=== PATIENT | female | born 1955 | race African-American/Black ===

== ENCOUNTER 2018-02-02 19:33 | Inpatient (IN) | payer OTHER ==
[~2018-02-02] VITALS: Ht 172.7 cm; Wt 79.8 kg
[~2018-02-02 19:33] MED LIST: CARI350T PO; OXYC10TE14 PO; SIMV10TA1 PO; ZOLP10TA1 PO; [UNRECOGNIZED DRUG - CODE] PO
[2018-02-02 19:43] VITALS: BP 130/44
--- NOTE | 2018-02-02 19:49 | NUR ---
PT TAKEN TO BED 2
--- NOTE | 2018-02-02 19:55 | NUR ---
came with c/o sorethroat, bodyaches, diarrhea, for a week.
--- NOTE | 2018-02-02 20:47 | NUR ---
ER MD DR MONAHAN AT BEDSIDE FOR EVAL
[2018-02-02] MEDS ORDERED: NACL 0.9% 1,000 ML IV ONE (20:50)
--- NOTE | 2018-02-02 21:12 | NUR ---
X-Ray at bedside.
[2018-02-02 21:38] LABS: HEMATOCRIT 32.2 % (36-48); HEMOGLOBIN 10.8 g/dL (12.0-16.0); MEAN CORPUSCULAR HEMOGLOBIN 31 pg (27-31); MEAN CORPUSCULAR HGB CONC 33 g/dL (33-37); MEAN CORPUSCULAR VOLUME 92.6 fL (80-94); PLATELET COUNT (AUTO) 218 K/uL (140-450); RED BLOOD CELL COUNT(AUTO) 3.48 MIL/uL (4.20-5.40); RED CELL DISTRIBUTION WIDTH 14.2 % (11.6-13.7); WHITE BLOOD COUNT (AUTO) 13.4 K/uL (4.8-10.8)
[2018-02-02 21:53] LABS: ALBUMIN 2.4 g/dL (3.4-5.0); ANION GAP 22.7 (8-16); CARBON DIOXIDE 18.3 mmol/L (21-32); TOTAL BILIRUBIN 8.4 mg/dL (0.0-1.0)
[2018-02-02 21:58] LABS: LYMPHOCYTES % (MANUAL) 3 % (20-46); MONOCYTES % (MANUAL) 8 % (5-12)
[2018-02-02 21:59] LABS: APPEARANCE,URINE SL CLOUDY (CLEAR); BILIRUBIN,URINE 2+ (NEGATIVE); BLOOD, URINE 3+ (NEGATIVE); COLOR,URINE YELLOW (YELLOW); LEUKOCYTE ESTERASE ,URINE 2+ (NEGATIVE); NITRITE, URINE NEGATIVE (NEGATIVE); UGLUCOSE NEGATIVE (NEGATIVE)
[2018-02-02 22:23] LABS: CREATININE 4.4 mg/dL (0.6-1.3)
[2018-02-02 22:32] LABS: RBC,URINE TOO NUMEROUS TO COUN /HPF (0-5); WBC,URINE TOO MANY TO COUNT /HPF (0-5)
[2018-02-02] MEDS ORDERED: cefTRIAXone 1,000 MG VIAL ONE (22:40)
--- NOTE | 2018-02-02 23:21 | NUR ---
PT TAKEN TO CT
--- NOTE | 2018-02-02 23:37 | NUR ---
PT RETURN FROM CT
[2018-02-03] MEDS ORDERED: NACL 0.9% 1,000 ML IV ONE (00:35)
[2018-02-03] MEDS ORDERED: DOCUSATE SODIUM 100 MG GELCAP PO PRN (00:55)
[2018-02-03] MEDS ORDERED: ONDANSETRON 4 MG/2 ML VIAL IM/IVP PRN (00:55)
[2018-02-03] MEDS ORDERED: ACETAMINOPHEN 325 MG TAB PO PRN (00:55)
--- NOTE | 2018-02-03 01:00 | NUR ---
ALL RESULTS BACK AND NOTED BY ERMD AND FOR ADMISSION.
--- NOTE | 2018-02-03 01:04 | NUR ---
Patient will be admitted to care of DR WEN. Admited to TELEMETRY. Will go to [id number]. Belongings list completed.
--- NOTE | 2018-02-03 01:10 | NUR ---
PT ARRIVED ON UNIT VIA [facility]. PT WALKED FROM [facility] TO BED. ACCOMPANIED BY . PT IS A/O X4. IV ACCESS IN L WRIST 22G WITH IVF RUNNING. IV IS PATENT AND INTACT. SKIN IS INTACT. PT C/O OF PAIN IN ABDOMEN RADIATING TO FLANK AREA. MRSA SWAB COLLECTED. ORIENTED PT TO ROOM AND USE OF CALL LIGHT LIGHT. BED LOCKED, LOW POSITION WITH SIDE RAILS UP X2. BOARD UPDATED. CALL LIGHT IS WITHIN REACH. WILL CONTINUE TO MONITOR PT.
[2018-02-03] MEDS ORDERED: BENZOCAINE/MENTHOL 1 LOZ MM PRN (01:35)
[2018-02-03] MEDS ORDERED: MORPHINE SULFATE 2 MG/ML SYR IVP PRN (01:35)
[2018-02-03] MEDS: DEXT 5% /NACL 0.9% 1,000 ML IV SCH ×3 (02:01→21:13)
[2018-02-03] MEDS: HYDROcodone/APAP 5/325 MG 1 TAB TAB PO PRN (02:01)
--- NOTE | 2018-02-03 02:01 | NUR ---
PT C/O PAIN. NORCO GIVEN. IVF STARTED. WILL CONTINUE TO MONITOR PT.
[2018-02-03] MEDS ORDERED: POTASSIUM CHLORIDE 20% 40 MEQ/15 ML UDC PO SCH (02:30)
[2018-02-03 03:09] LABS: PROTHROMBIN TIME 12.4 secs (10.8-13.4)
--- NOTE | 2018-02-03 03:26 | NUR ---
ADMINISTERED ORDERED MEDICATION. PT TOLERATED WELL. WILL CONTINUE TO MONITOR.
[2018-02-03 03:30] LABS: BARBITURATE, URINE NEG. ng/ml (NEG <=200); BENZODIAZEPINE, URINE POS. ng/mL (NEG <=200); CANNABINOID, URINE NEG. ng/mL (NEG <=50); COCAINE, URINE POS. ng/mL (NEG <=300); OPIATE, URINE POS. ng/mL (NEG <=2000); PHENCYCLIDINE SCREEN,URINE NEG. ng/mL (NEG <=25)
[2018-02-03 04:00] VITALS: BP 108/55
--- NOTE | 2018-02-03 04:22 | NUR ---
ASSISTED PT UP TO BATHROOM. PT TOLERATED WELL AND IS BACK IN BED. WILL CONTINUE TO MONITOR.
--- NOTE | 2018-02-03 05:13 | NUR ---
PT RIPPED OUT IV. IV CANULA INTACT. NEW IV ACCESS STARTED IN L FA 22G. PT TOLERATED WELL. WILL CONTINUE TO MONITOR.
--- NOTE | 2018-02-03 05:55 | NUR ---
PATIENT IS UNABLE TO PERFORM I.S. DUE TO LETHARGY AND PAIN.
--- NOTE | 2018-02-03 06:13 | NUR ---
PT C/O PAIN. MORPHINE GIVEN.
--- NOTE | 2018-02-03 06:45 | NUR ---
ASSISTED PT UP TO BATHROOM. PT BACK IN BED. NO SIGNS OF DISTRESS. WILL CONTINUE TO MONITOR.
[2018-02-03 07:03] LABS: BASOPHILS % (AUTO) 0.2 % (0.0-2.0); EOSINOPHILS # (AUTO) 0.1 K/uL (0-0.4); EOSINOPHILS % (AUTO) 2.4 % (0.0-4.0); HEMATOCRIT 28.6 % (36-48); HEMOGLOBIN 9.6 g/dL (12.0-16.0); LYMPHOCYTES # (AUTO) 0.4 K/uL (2.5-16.5); LYMPHOCYTES % (AUTO) 7.4 % (20.5-51.1); MEAN CORPUSCULAR HEMOGLOBIN 31 pg (27-31); MEAN CORPUSCULAR HGB CONC 34 g/dL (33-37); MEAN CORPUSCULAR VOLUME 92.8 fL (80-94); MONOCYTES % (AUTO) 0.8 % (1.7-9.3); NEUTROPHILS # (AUTO) 4.3 K/uL (1.8-7.7); NEUTROPHILS % (AUTO) 89.2 % (42.2-75.2); PLATELET COUNT (AUTO) 176 K/uL (140-450); RED BLOOD CELL COUNT(AUTO) 3.08 MIL/uL (4.20-5.40); RED CELL DISTRIBUTION WIDTH 14.5 % (11.6-13.7); WHITE BLOOD COUNT (AUTO) 4.8 K/uL (4.8-10.8)
--- NOTE | 2018-02-03 07:09 | NUR ---
ENDORSED PT TO DAY SHIFT NURSE FOR CONTINUITY OF CARE. PT IN STABLE CONDITION.
--- NOTE | 2018-02-03 07:10 | NUR ---
RECEIVED BEDSIDE REPORT FROM SALES TRAINING MANAGER NURSE. PATIENT IS RESTING IN BED. SHE STATES SHE IS HOT. PATIENT HAS LEFT FA IV INFUSING D5NS AT 120ML/HR. PATIENT HAS SCAR ON BOTH KNEE S/P BILATERAL KNEE REPLACEMENT. BED IS ON LOWEST POSITION. CALL LIGHT WITHIN REACH.
[2018-02-03 08:00] VITALS: BP 96/43
[2018-02-03 08:03] LABS: CHOL/HDL RATIO 9.5 (1-4.5); MAGNESIUM 1.3 mg/dL (1.8-2.4); PHOSPHORUS 5.5 mg/dL (2.5-4.9)
[2018-02-03 08:08] LABS: POTASSIUM 3.5 mmol/L (3.5-5.1)
[2018-02-03 08:12] LABS: CREATININE 4.1 mg/dL (0.6-1.3)
[2018-02-03 08:13] LABS: ANION GAP 21.2 (8-16); CARBON DIOXIDE 16.3 mmol/L (21-32)
[2018-02-03 08:14] LABS: MAGNESIUM 1.3 mg/dL (1.8-2.4); PHOSPHORUS 5.5 mg/dL (2.5-4.9); THYROID STIMULATING HORMONE 1.82 uIU/mL (0.34-3.74)
[2018-02-03] MEDS ORDERED: LORazepam 2 MG/ML VIAL IVP PRN (08:15)
--- NOTE | 2018-02-03 08:40 | NUR ---
PATIENT HAS BEEN SCREENED AND CATEGORIZED HIGH NUTRITION RISK. PATIENT WILL BE SEEN WITHIN 1-2 DAYS OF ADMISSION. 02/03/18 02/04/[address]
--- NOTE | 2018-02-03 08:45 | NUR ---
PT PULLED OUT IV AND STATED SHE WANTS TO TALK TO THE DOCTOR AND THAT SHE WANTS TO GO HOME. DR. GOSS NOTIFIED.
[2018-02-03] MEDS ORDERED: MULTIVITAMIN 1 TAB PO SCH (09:00)
--- NOTE | 2018-02-03 09:00 | NUR ---
PT SEEN BY DR. RODRIGEUZ. NO NEW ORDERS.
[2018-02-03] MEDS ORDERED: ALBUTEROL SULFATE/IPRATROPIU 3 ML SOL IH PRN (09:05)
[2018-02-03] MEDS: NICOTINE TRANSD SYS 21 MG/24 HR PATCH TD SCH (09:53)
[2018-02-03] MEDS: LACTOBACILLUS RHAMNOSUS GG 1 EACH CAP PO SCH (09:53)
[2018-02-03] MEDS: THIAMINE 100 MG TAB PO SCH (09:53)
[2018-02-03] MEDS: FOLIC ACID 1 MG TAB PO SCH (09:53)
[2018-02-03] MEDS ORDERED: VIT-B COMP/VIT-C/FOLIC ACID 1 TAB PO SCH (10:30)
--- NOTE | 2018-02-03 10:53 | NUR ---
CM NOTE PER [facility] CONOR MCCURDY # [phone] COVERING FOR CONOR ROJAS, SEND REVIEWS ONLY TO [facility]. ADMISSION CHART REVIEW DONE. INITIAL REVIEW FAXED TO [facility] [phone] CALLI # [phone]/CRYSTAL # [phone].
[2018-02-03 11:50] VITALS: BP 90/51
--- NOTE | 2018-02-03 11:52 | NUR ---
PATIENT HAS LOW BLOOD PRESSURE OF 90/51. DOCTOR NOTIFIED. WILL RETAKE B/P AN HOUR. SHE IS GETTING D5NS AT 120 ML/HR. HAS CALL LIGHT WITHIN REACH. BED ON LOWEST POSITION. WILL CONTINUE TO MONITOR.
--- NOTE | 2018-02-03 12:15 | NUR ---
DR. VELA HERE TO SEE PT.
[2018-02-03] MEDS ORDERED: ALBUTEROL SULFATE/IPRATROPIU 3 ML SOL IH SCH (13:00)
[2018-02-03 13:30] VITALS: BP 99/62
--- NOTE | 2018-02-03 15:12 | NUR ---
02/03/18 RD INITIAL ASSESSMENT COMPLETED PLEASE REFER TO NUTRITION ASSESSMENT UNDER CARE ACTIVITY FOR ESTIMATED NUTRITIONAL NEEDS. 1. CONTINUE CLEAR LIQUID DIET TOLERATED. 2. WHEN PT IS MEDICALLY STABLE, CONSIDER ADVANCING TO RENAL DIET TOLERATED. 3. RECOMMEND ENSURE CLEAR BID. 4. RD TO FOLLOW-UP 2-3 DAYS, HIGH RISK ARNEL JULES RD
--- NOTE | 2018-02-03 15:30 | NUR ---
PT SEEN BY DR. SUNG WITH NEW ORDERS.
[2018-02-03 16:00] VITALS: BP 94/53
--- NOTE | 2018-02-03 16:30 | NUR ---
URINE SPECIMEN COLLECTED AND SENT TO LAB FOR RANDOM CREA AND PROTEIN.
[2018-02-03] MEDS: LACTULOSE 20 GM/30 ML UDC PO SCH (17:00)
[2018-02-03] MEDS: SENNA 8.6 MG TAB PO SCH (17:15)
--- NOTE | 2018-02-03 17:22 | NUR ---
PATIENT REFUSED LACTULOSE. EXPLAINED REASON FOR TAKING IT. EXPLAINED RISK AND BENEFITS TO PATIENT. VERBALIZED UNDERSTANDING.
--- NOTE | 2018-02-03 18:05 | NUR ---
PT AWAKE, SITTING ON BED, TALKING TO VISITORS AT THE BEDSIDE .NO SOB NOTED. NO C/O PAIN AT THIS TIME.
--- NOTE | 2018-02-03 19:32 | NUR ---
ENDORSED PATIENT TO BAKERY SUPERVISOR NURSE. PATIENT IS IN STABLE CONDITION. RESTING COMFORTABLY IN BED. BED ALARM ON. CALL LIGHT WITHIN REACH. IV IS DRY, INTACT, PATENT.
--- NOTE | 2018-02-03 19:33 | NUR ---
RECEIVED PT FROM JAIMIE RN PT AAOX3 RESTING ON BED IV ON LEFT UPPER CHEST INFUSING WELL, ON TELEMETRY SR PT USING BSC VOIDING WELL NOT DISTRESS NOTED INITIAL ASSESSMENT DONE
[2018-02-03 20:00] VITALS: BP 94/56
--- NOTE | 2018-02-03 22:00 | NUR ---
PT IS ASSISTED TO USED BSC AND LINEN CHANGED NOT DISTRESS NOTE
[2018-02-04] VITALS: BP 92/57
--- NOTE | 2018-02-04 00:36 | NUR ---
PT IS ASSISTED TO USE BSC VOIDING WELL ON TELEMETRY SR
[2018-02-04] MEDS: DEXT 5% /NACL 0.9% 1,000 ML IV SCH ×2 (01:55→16:33)
--- NOTE | 2018-02-04 03:14 | NUR ---
PT VERBALIZED TO FEEL BETTER SHE TOLERATED ORAL FLUIDS , IV ;ON LEFT UPPER CHEST INFUSING WELL ON TELEMETRY ST VOIDING WELL USING BSC DENIES PAIN AND NOT FEVER
[2018-02-04 04:00] VITALS: BP 92/50
--- NOTE | 2018-02-04 04:00 | NUR ---
SPONGE BATH GIVEN LINEN CHANGED PT IS ASSISTED TO USE BSC SMALL LIQUID STOOL DENIES ANY PAIN NOT FEVER
[2018-02-04 06:38] LABS: FERRITIN 1688 ng/mL (15-150); HEPATITIS B SURFACE ANTIGEN Negative (Negative)
--- NOTE | 2018-02-04 06:47 | NUR ---
PT RESTING O;N BED NOT DISTRESS NOTED ORAL FLUIDS WELL TOLERATED . ON TELEMETRY SR, PT WILL BE ENDORSED TO DAY SHIFT FOR CONTINUITY OF CARE
--- NOTE | 2018-02-04 07:20 | NUR ---
RECEIVED REPORT FROM OFFSET LITHOGRAPHIC PRESS OPERATOR NURSE. PATIENT IS RESTING COMFORTABLE IN BED. IV WAS LEAKING. STOPPED INFUSION WILL INSERT NEW IV. PATIENT IS IN STABLE CONDITION. BED ALARM ON. BED ON LOWEST POSITION. CALL LIGHT WITHIN REACH. WILL CONTINUE TO MONITOR
[2018-02-04 07:43] LABS: HEMATOCRIT 30.6 % (36-48); HEMOGLOBIN 10.1 g/dL (12.0-16.0)
[2018-02-04 07:53] LABS: MEAN CORPUSCULAR HEMOGLOBIN 31 pg (27-31); MEAN CORPUSCULAR HGB CONC 33 g/dL (33-37); MEAN CORPUSCULAR VOLUME 94.1 fL (80-94); PLATELET COUNT (AUTO) 143 K/uL (140-450); RED BLOOD CELL COUNT(AUTO) 3.25 MIL/uL (4.20-5.40); WHITE BLOOD COUNT (AUTO) 7.4 K/uL (4.8-10.8)
[2018-02-04 08:00] VITALS: BP 103/44
[2018-02-04] MEDS ORDERED: CALCIUM ACETATE 667 MG TAB PO SCH (08:00)
[2018-02-04] MEDS ORDERED: MAG SULF 2000 MG/WATER PREMIX 50 ML IV SCH (08:00)
[2018-02-04 08:19] LABS: ANION GAP 18.9 (8-16); CARBON DIOXIDE 19.7 mmol/L (21-32); CREATININE 3.9 mg/dL (0.6-1.3); POTASSIUM 3.6 mmol/L (3.5-5.1)
[2018-02-04 08:20] LABS: TOTAL BILIRUBIN 11.5 mg/dL (0.0-1.0)
[2018-02-04 08:21] LABS: EOSINOPHILS % (MANUAL) 1 % (0-4); MONOCYTES % (MANUAL) 4 % (5-12)
[2018-02-04 08:22] LABS: LYMPHOCYTES % (MANUAL) 13 % (20-46)
--- NOTE | 2018-02-04 08:45 | NUR ---
PT'S PRESENT IV SITE NOTED LEAKING AND INFILTRATED. TRIED TO RESTART A NEW LINE BUT UNABLE TO, PT IS A HARD STICK. DR. GOSS NOTIFIED.
[2018-02-04 08:57] LABS: TRANSFERRIN 110 mg/dL (200-370)
--- NOTE | 2018-02-04 08:57 | NUR ---
CM NOTE CONCURRENT REVIEW FAXED TO [facility] [phone] CRYSTAL # [phone].
[2018-02-04] MEDS ORDERED: SODIUM FERRIC GLUCONATE 125 MG in NACL 0.9% 100 ML IV SCH (09:00)
[2018-02-04] MEDS: SENNA 8.6 MG TAB PO SCH ×3 (09:00→17:00)
[2018-02-04] MEDS: LACTULOSE 20 GM/30 ML UDC PO SCH ×3 (09:00→17:00)
[2018-02-04] MEDS ORDERED: MAGNESIUM OXIDE 400 MG TAB PO SCH (09:10)
--- NOTE | 2018-02-04 09:30 | NUR ---
LEFT A VOICEMAIL MESSAGE TO [facility] TEL#: [phone] REGARDING THE PICC PLACEMENT ORDERED. AWAITING FOR CALL BACK.
--- NOTE | 2018-02-04 09:45 | NUR ---
FERRLECIT IVPB AND MAG RIDER NOT GIVEN YET. DR. BIANCHI NOTIFIED.
[2018-02-04 09:46] LABS: MAGNESIUM 1.6 mg/dL (1.8-2.4); PHOSPHORUS 6.4 mg/dL (2.5-4.9)
--- NOTE | 2018-02-04 10:00 | NUR ---
ANAY FROM [facility] CALLED BACK, STATED HE WILL BE HERE AROUND 12 NOON. RISKS AND BENEFITS EXPLAINED TO PT BY DR. BIANCHI, PT VERBALIZED UNDERSTANDING. CONSENT SIGNED BY PT. NOTIFIED RENÉ FROM [facility] REGARDING THE PICC PLACEMENT AT 12NOON.
--- NOTE | 2018-02-04 10:15 | NUR ---
P.T. NOTES PATIENT REFUSED TO PARTICIPATE WITH P.T. - ATTEMPTED 3X BUT NOT SUCCESSFUL. STATES SHE HAS ABDOMINAL PAIN AND DOES NOT FEEL LIKE GETTING UP. EXPLAINED THE BENEFITS OF THE OUT OF BED ACTIVITIES BUT STILL DECLINED. HER NURSE JAIMIE WAS MADE AWARE OF HER REFUSAL. PLAN: WE'LL TRY AGAIN TOMORROW IF SHE REMAINS IN THIS HOSPITAL.
[2018-02-04] MEDS: HYDROcodone/APAP 5/325 MG 1 TAB TAB PO PRN ×2 (10:49→16:30)
[2018-02-04] MEDS: NICOTINE TRANSD SYS 21 MG/24 HR PATCH TD SCH (10:50)
[2018-02-04] MEDS: THIAMINE 100 MG TAB PO SCH (10:50)
[2018-02-04] MEDS: FERROUS SULFATE 325 MG TABEC PO SCH (10:51)
[2018-02-04] MEDS: ASCORBIC ACID 500 MG TAB PO SCH (10:51)
[2018-02-04] MEDS: LACTOBACILLUS RHAMNOSUS GG 1 EACH CAP PO SCH (10:51)
[2018-02-04] MEDS: FOLIC ACID 1 MG TAB PO SCH (10:51)
[2018-02-04] MEDS: VIT-B COMP/VIT-C/FOLIC ACID 1 TAB PO SCH (10:51)
--- NOTE | 2018-02-04 11:05 | NUR ---
PATIENT IS IN STABLE CONDITION RESTING IN BED. DAUGHTER AT BEDSIDE. CALL LIGHT WITHIN REACH. WILL CONTINUE TO MONITOR.
[2018-02-04 11:53] VITALS: BP 101/41
--- NOTE | 2018-02-04 15:00 | NUR ---
RT UPPER ARM PICC LINE ESTABLISHED BY PICC LINE NURSE
[2018-02-04] MEDS: MAGNESIUM SULFATE 1GM in DEXTROSE 5% 100 ML PREMIX IV SCH ×2 (15:09→16:31)
[2018-02-04 16:00] VITALS: BP 110/57
--- NOTE | 2018-02-04 16:00 | NUR ---
PATIENT IS RESTING IN BED NO DISTRESS NOTED AT THIS TIME. SHE IS ON ROOM AIR. CALL LIGHT IS WITHIN REACH. BED ON LOWEST POSITION. EXPLAINED TO PATIENT TO CALL FOR ASSISTANCE TO USE BEDSIDE COMMODE. FAMILY AT BEDSIDE. PATIENT VERBALIZED UNDERSTANDING. WILL CONTINUE TO MONITOR
[2018-02-04] MEDS ORDERED: FUROSEMIDE 40 MG/4 ML VIAL IVP SCH (17:00)
--- NOTE | 2018-02-04 19:29 | NUR ---
ENDORSED PATIENT TO STEAM CLEANER NURSE. MOVED PATIENT TO ROOM 107 A CLOSER TO NURSES STATION. PATIENT DOESNT CALL FOR ASSISTANCE. INSTRUCTED PATIENT TO USE CALL LIGHT SHE VERBALIZED UNDERSTANDING.
--- NOTE | 2018-02-04 19:30 | NUR ---
RECEIVED PT FROM JAIMIE RN PT IS AAOX3 WITH GENERALIZED WEAKNESS ON TELEMETRY SR NOT DISTRESS NOTED, PICC LINE ON RT UA PATENT INFUSING WELL IV FLUIDS, INITIL ASSESSMENT DONE
[2018-02-04 20:00] VITALS: BP 98/52
--- NOTE | 2018-02-04 21:00 | NUR ---
PT IS TRANSFER TO ROOM 107A TO BE CLOSER TO THE UNIT PT IS ASSISTED TO USED BSC VOIDING WELL NOT DISTRESS NOTED ON TELEMETRY SR
[2018-02-05] VITALS: BP 130/49
[2018-02-05] MEDS: DEXT 5% /NACL 0.9% 1,000 ML IV SCH (00:38)
--- NOTE | 2018-02-05 01:20 | NUR ---
PT REPOSITIONED IV ON RT UA PICC LINE GETTING SLEEP REMAIN STABLE AT THSIS TIME ON TELEMETRY SR
[2018-02-05 04:00] VITALS: BP 143/50
--- NOTE | 2018-02-05 04:00 | NUR ---
SPONGE BATH GIVEN LINEN CHANGED PT HAS BEEN ASSISTING TO USED BSC VOIDING WELL ON TELEMETRY SR
--- NOTE | 2018-02-05 06:11 | NUR ---
PT AWAKE GENERALIZED WEAKNESS COOPERATIVE NOT DISTRESS NOTED IV ON RT UA PICCLINE INFUSING WELL ON TELEMETRY SR
[2018-02-05 06:23] LABS: HEMATOCRIT 27.2 % (36-48); MEAN CORPUSCULAR HEMOGLOBIN 31 pg (27-31); MEAN CORPUSCULAR HGB CONC 33 g/dL (33-37); MEAN CORPUSCULAR VOLUME 93.2 fL (80-94); PLATELET COUNT (AUTO) 109 K/uL (140-450); RED BLOOD CELL COUNT(AUTO) 2.91 MIL/uL (4.20-5.40); WHITE BLOOD COUNT (AUTO) 12.2 K/uL (4.8-10.8)
[2018-02-05 06:44] LABS: MAGNESIUM 2.3 mg/dL (1.8-2.4); PHOSPHORUS 5.6 mg/dL (2.5-4.9)
[2018-02-05 06:48] LABS: ANION GAP 17.7 (8-16); CARBON DIOXIDE 18.3 mmol/L (21-32); CREATININE 3.2 mg/dL (0.6-1.3)
[2018-02-05 07:12] LABS: EOSINOPHILS % (MANUAL) 1 % (0-4); LYMPHOCYTES % (MANUAL) 10 % (20-46); MONOCYTES % (MANUAL) 6 % (5-12)
[2018-02-05] MEDS: NACL 0.9% 1,000 ML IV SCH ×2 (07:24→17:15)
--- NOTE | 2018-02-05 07:30 | NUR ---
RECEIVED REPORT FROM MANAGER DIVISION NURSE AT BEDSIDE. PATIENT IS SLEEPING IN BED, AROUSABLE BY VOICE. COMPLAINING OF "ABDOMINAL BLOATING" AND 6/10 ABDOMINAL PAIN. ABDOMEN IS FIRM AND DISTENDED. BS ACTIVE. WILL INFORM DR. GOSS. LUNGS CTA. PT USES BEDSIDE COMMODE. SKIN INTACT. PICC LINE IN RIGHT UA PATENT AND ASYMPTOMATIC, RUNNING IVF PER MD ORDERS. ALL SAFETY PRECAUTIONS IN PLACE, WILL CONTINUE TO MONITOR.
[2018-02-05] MEDS: FERROUS SULFATE 325 MG TABEC PO SCH (07:49)
[2018-02-05] MEDS: HYDROcodone/APAP 5/325 MG 1 TAB TAB PO PRN (07:49)
[2018-02-05 08:00] VITALS: BP 95/56
[2018-02-05] MEDS ORDERED: CALCIUM ACETATE 667 MG TAB PO SCH (08:30)
[2018-02-05] MEDS: LACTULOSE 20 GM/30 ML UDC PO SCH ×5 (09:00→20:24)
[2018-02-05] MEDS ORDERED: KCL 20 MEQ/WATER INJ PREMIX 200 ML IV SCH (09:00)
[2018-02-05] MEDS ORDERED: SIMETHICONE 80 MG TAB.CHEW PO SCH (09:13)
[2018-02-05] MEDS: FOLIC ACID 1 MG TAB PO SCH (09:39)
[2018-02-05] MEDS: THIAMINE 100 MG TAB PO SCH (09:39)
[2018-02-05] MEDS: ASCORBIC ACID 500 MG TAB PO SCH (09:39)
[2018-02-05] MEDS: LACTOBACILLUS RHAMNOSUS GG 1 EACH CAP PO SCH (09:39)
[2018-02-05] MEDS: SENNA 8.6 MG TAB PO SCH ×3 (09:40→17:00)
[2018-02-05] MEDS: NICOTINE TRANSD SYS 21 MG/24 HR PATCH TD SCH (09:40)
[2018-02-05] MEDS: VIT-B COMP/VIT-C/FOLIC ACID 1 TAB PO SCH (09:40)
--- NOTE | 2018-02-05 09:50 | NUR ---
DR. GOSS NOTIFIED OF PATIENT'S ABDOMINAL DISTENSION. DR. GOSS TO PUT IN ORDER FOR WILL CONTINUE TO MONITOR. Addendum: 02/05/18 at 1102 by Ashley Antonio Meng, RN REAL TIME 0830
--- NOTE | 2018-02-05 09:51 | NUR ---
PATIENT REFUSED TO TAKE THE LACTULOSE. LACTULOSE HAD BEEN OPENED AND THUS WILL BE EXPOSED OF PER HOSPITAL POLICY. EXPLAINED RISKS AND BENEFITS. PT VERBALIZED UNDERSTANDING BUT CONTINUES TO REFUSE. PT ALSO COMPLAINING OF NAUSEA BUT REFUSES TO TAKE ANTIEMETIC. WILL CONTINUE TO MONITOR. Addendum: 02/05/18 at 1103 by Ashley Antonio Meng, RN DISPOSED OF PER HOSPITAL POLICY.
--- NOTE | 2018-02-05 11:03 | NUR ---
PT SLEEPING IN BED, AROUSABLE BY VOICE. NO COMPLAINTS OF PAIN OR DISCOMFORT AT THIS TIME. WILL CONTINUE TO MONITOR.
[2018-02-05 12:00] VITALS: BP 118/55
--- NOTE | 2018-02-05 12:02 | NUR ---
PT REFUSING CT ABDOMEN. DR. GOSS IN ROOM TO TALK WITH PATIENT REGARDING THE IMAGING STUDY BUT PT CONTINUES TO REFUSE.
--- NOTE | 2018-02-05 12:52 | NUR ---
PATIENT REFUSED SENNA AND LACTULOSE. EXPLAINED RISK AND BENEFITS. PT CONTINUES TO REFUSE. PT SEEMS NAUSEATED BUT REFUSED ANTIEMETIC. GAVE PT ICE CHIPS AT PT REQUEST. WILL CONTINUE TO MONITOR.
[2018-02-05] MEDS ORDERED: KCL 20 MEQ/WATER INJ PREMIX 100 ML IV SCH (13:00)
--- NOTE | 2018-02-05 13:44 | NUR ---
CM NOTE CONCURRENT REVIEW AND PHYSICAL THERAPY EVALUATION FAXED TO [facility] [phone] CRYSTAL # [phone] AWARE.
--- NOTE | 2018-02-05 14:15 | NUR ---
DR. SUNG HERE TO SEE PATIENT. DR. SUNG EXPLAINED THE NEED TO DO EGD/COLONOSCOPY TO PT WELL RISKS AND BENEFITS. PT VERBALIZED UNDERSTANDING.
--- NOTE | 2018-02-05 14:32 | NUR ---
CONOR NOTE ORDER FOR HOME FOR PT AND PT EVALUATION FAXED TO [facility] [phone] CONOR MULTANI # [phone].
[2018-02-05] MEDS ORDERED: POTASSIUM CHLORIDE 20% 40 MEQ/15 ML UDC PO SCH (15:00)
[2018-02-05 16:00] VITALS: BP 113/91
[2018-02-05] MEDS ORDERED: MORPHINE SULFATE 2 MG/ML SYR IVP SCH (16:30)
--- NOTE | 2018-02-05 16:45 | NUR ---
PT REFUSING THE ONE TIME MORPHINE IVP. DR. BIANCHI AWARE. WILL CONTINUE TO MONITOR.
[2018-02-05] MEDS ORDERED: SENNA 8.6 MG TAB PO SCH (17:00)
--- NOTE | 2018-02-05 17:05 | NUR ---
PT REFUSING TO SIGN THE CONSENT FOR EGD AND COLONOSCOPY AT THIS TIME. WHEN ASKED IF PT WILL SIGN AT A LATER TIME, PT DID NOT ANSWER. WILL ATTEMPT TO OBTAIN CONSENT AGAIN LATER, OTHERWISE WILL ENDORSE TO TOWEL ROLLING MACHINE OPERATOR RN.
[2018-02-05] MEDS ORDERED: MAGNESIUM CITRATE 300 ML BTL PO SCH (19:00)
--- NOTE | 2018-02-05 19:15 | NUR ---
ENDORSED PLAN OF CARE TO VENDING MACHINE COLLECTOR RN AT BEDSIDE. ENDORSED OBTAIN CONSENT FOR EGD AND COLONOSCOPY TO VENDING MACHINE COLLECTOR RN. LEI RN AWARE THAT PT IS REFUSING MOST INTERVENTIONS.
--- NOTE | 2018-02-05 19:31 | NUR ---
RECEIVED REPORT FROM DAY SHIFT NURSE AT PT BEDSIDE. PT IN STABLE CONDITION. PT IS CURRENTLY SLEEPING BUT EASILY AROUSABLE. PT HAS JH PICC LINE WITH IVF RUNNING PER MD ORDERS. SKIN IS INTACT. ABDOMINAL DISTENTION NOTED. BED IS LOCKED, LOW POSITION AND SIDE RAILS UP X2. BOARD UPDATED. CALL LIGHT IS WITHIN REACH. WILL CONTINUE TO MONITOR PT.
[2018-02-05 20:00] VITALS: BP 120/50
[2018-02-05] MEDS: METOCLOPRAMIDE 10 MG/2 ML INJ VIAL IVP SCH (20:23)
[2018-02-05] MEDS: POLYETHYLENE GLYCOL 17 GM/PKT PO SCH (20:24)
--- NOTE | 2018-02-05 20:24 | NUR ---
ADMINISTERED SCHEDULED MEDICATIONS TO PT. PT REFUSED MIRALAX AND LACTULOSE. ASSISTED PT UP TO BEDSIDE COMMODE. PT TOLERATED WELL. WILL CONTINUE TO MONITOR.
--- NOTE | 2018-02-05 22:46 | NUR ---
PT ASLEEP IN BED. NO SIGNS OF DISTRESS. WILL CONTINUE TO MONITOR.
[2018-02-06] VITALS: BP 121/46
--- NOTE | 2018-02-06 00:53 | NUR ---
NO CHANGE IN CONDITION. WILL CONTINUE TO MONITOR PT.
[2018-02-06] MEDS: NACL 0.9% 1,000 ML IV SCH (02:18)
--- NOTE | 2018-02-06 02:18 | NUR ---
STARTED NEW BAG OF IVF. PT ASLEEP IN BED. NO SIGNS OF DISTRESS. WILL CONTINUE TO MONITOR.
[2018-02-06 04:00] VITALS: BP 123/59
[2018-02-06] MEDS: METOCLOPRAMIDE 10 MG/2 ML INJ VIAL IVP SCH (04:42)
--- NOTE | 2018-02-06 04:42 | NUR ---
ADMINISTERED SCHEDULED MEDICATION. PT TOLERATED WELL. ALL NEEDS ARE MET AT THIS TIME. WILL CONTINUE TO MONITOR.
--- NOTE | 2018-02-06 05:49 | NUR ---
PRODUCT EXPERT HERE TO TAKE PT TO CT. PT REFUSING TO GO. WILL CONTINUE TO MONITOR.
[2018-02-06] MEDS ORDERED: DEXT 5% / NACL 0.9% 500 ML IV SCH (06:15)
[2018-02-06] MEDS ORDERED: DEXT 5% /NACL 0.9% 1,000 ML IV SCH (06:30)
--- NOTE | 2018-02-06 06:39 | NUR ---
SPOKE WITH PT. PT NOW AGREEING TO CT SCAN. RADIOLOGY HERE TO TAKE PT.
--- NOTE | 2018-02-06 07:26 | NUR ---
ENDORSED PT TO DAY SHIFT NURSE FOR CONTINUITY OF CARE. PT IN STABLE CONDITION.
--- NOTE | 2018-02-06 07:27 | NUR ---
RECEIVED REPORT FROM MARINE SCIENTIST NURSE AT BEDSIDE. PATIENT IS SLEEPING IN BED, AROUSABLE BY VOICE. NO COMPLAINTS OF PAIN OR DISCOMFORT AT THIS TIME. ABDOMEN IS DISTENDED. BS ACTIVE. LUNGS CTA. PT USES BEDSIDE COMMODE. SKIN INTACT. PICC LINE IN RIGHT UA PATENT AND ASYMPTOMATIC, RUNNING IVF PER MD ORDERS. ALL SAFETY PRECAUTIONS IN PLACE, WILL CONTINUE TO MONITOR.
[2018-02-06 08:00] VITALS: BP 115/46
[2018-02-06] MEDS: FERROUS SULFATE 325 MG TABEC PO SCH (08:00)
--- NOTE | 2018-02-06 08:13 | NUR ---
PER DR. GOSS, HOLD THE LACTULOSE, SENNA, AND REGLAN.
[2018-02-06] MEDS: NICOTINE TRANSD SYS 21 MG/24 HR PATCH TD SCH (08:21)
[2018-02-06] MEDS: LACTOBACILLUS RHAMNOSUS GG 1 EACH CAP PO SCH (08:26)
[2018-02-06] MEDS: LACTULOSE 20 GM/30 ML UDC PO SCH (08:26)
[2018-02-06] MEDS: FOLIC ACID 1 MG TAB PO SCH (08:27)
[2018-02-06] MEDS: POLYETHYLENE GLYCOL 17 GM/PKT PO SCH (08:28)
[2018-02-06] MEDS: VIT-B COMP/VIT-C/FOLIC ACID 1 TAB PO SCH (08:29)
[2018-02-06] MEDS: ASCORBIC ACID 500 MG TAB PO SCH (08:29)
[2018-02-06] MEDS: THIAMINE 100 MG TAB PO SCH (08:29)
--- NOTE | 2018-02-06 08:37 | NUR ---
PER RADIOLOGY, PT REFUSED SMALL BOWEL FOLLOW THROUGH. WILL NOTIFY DR. GOSS.
--- NOTE | 2018-02-06 08:41 | NUR ---
LEFT MESSAGE WITH DR. ESTEVEZ REGARDING PATIENT REFUSING SMALL BOWEL FOLLOW THROUGH AND WISHING TO GO HOME NOW. Addendum: 02/06/18 at 0842 by Ashley Antonio Meng, RN PER DR. ESTEVEZ, THE DOCTOR WILL BE IN TO SPEAK WITH PATIENT.
--- NOTE | 2018-02-06 08:55 | NUR ---
DR. GOSS IN ROOM TO TALK TO PATIENT. DOCTOR STRONGLY ADVISED AGAINST AND DISCUSSED THE RISKS OF LEAVING AGAINST MEDICAL ADVICE. PT VERBALIZES UNDERSTANDING BUT CONTINUES TO INSIST ON LEAVING. DOCTOR AND PT SIGNED AMA FORM. AT PATIENT'S REQUEST, DAUGHTER HAS BEEN CALLED. DAUGHTER SAYS SHE WILL BE AT THE HOSPITAL AROUND 0930.
--- NOTE | 2018-02-06 08:57 | NUR ---
CM NOTE CONCURRENT REVIEW FAXED TO [facility] [phone]. PER [facility] [employer] CRYSTAL # [phone] SHE IS STILL WORKING ON ARRANGING PATIENT'S HOME HEALTH.
--- NOTE | 2018-02-06 10:15 | NUR ---
DAUGHTER IS HERE AT BEDSIDE. DR. GOSS SPOKE WITH DAUGHTER AND PATIENT REGARDING PATIENT'S CONDITION, WHY PATIENT NEEDS FURTHER IMAGING AND TREATMENT, AND THE RISKS OF LEAVING THE HOSPITAL AGAINST MEDICAL ADVICE. THE PATIENT AND DAUGHTER VERBALIZES UNDERSTANDING. PT CONTINUES TO INSIST UPON LEAVING AGAINST MEDICAL ADVICE.
--- NOTE | 2018-02-06 10:55 | NUR ---
PATIENT HEALTH SUMMARY PROVIDED TO PATIENT. PATIENT ENCOURAGED TO FOLLOW UP WITH PRIMARY CARE DOCTOR SOON POSSIBLE. PT AND DAUGHTER VERBALIZES UNDERSTANDING. ID BANDS REMOVED. PICC LINE REMOVED WITH MINIMAL BLOOD LOSS AND LUMEN COMPLETELY INTACT. PT DISCHARGED FROM UNIT VIA WHEELCHAIR AND WILL GO HOME WITH DAUGHTER VIA PRIVATE VEHICLE.
--- NOTE | 2018-02-06 12:11 | NUR ---
CM NOTE INFORMED [facility] CONOR ROJAS PH# [phone] THAT PATIENT LEFT AMA.
[2018-02-06] MEDS ORDERED: PIPER/TAZO 2.25GM/D5W PREMIX 50 ML IV SCH (13:00)
== END 2018-02-06 10:55 | disposition left against medical advice (07) | DRG 871 ==
LOC: MED 19:33 → MTU 02-03 01:04
PROVIDERS: ADMIT General Practice; ATTEND General Practice
DX: A41.9 Sepsis, unspecified organism (principal); N17.0 Acute kidney failure with tubular necrosis; E43 Unspecified severe protein-calorie malnutrition; G93.40 Encephalopathy, unspecified; N12 Tubulo-interstitial nephritis, not specified as acute or chronic; J98.11 Atelectasis; K56.609 Unspecified intestinal obstruction, unspecified as to partial versus complete obstruction; E83.39 Other disorders of phosphorus metabolism; D69.6 Thrombocytopenia, unspecified; E87.6 Hypokalemia; K57.30 Diverticulosis of large intestine without perforation or abscess without bleeding; M17.0 Bilateral primary osteoarthritis of knee; M51.36 Other intervertebral disc degeneration, lumbar region; I70.0 Atherosclerosis of aorta; D64.9 Anemia, unspecified; Z96.653 Presence of artificial knee joint, bilateral; M54.30 Sciatica, unspecified side; G89.29 Other chronic pain; F17.210 Nicotine dependence, cigarettes, uncomplicated; E80.6 Other disorders of bilirubin metabolism; R31.9 Hematuria, unspecified; E78.5 Hyperlipidemia, unspecified; E86.9 Volume depletion, unspecified; N18.9 Chronic kidney disease, unspecified; I12.9 Hypertensive chronic kidney disease with stage 1 through stage 4 chronic kidney disease, or unspecified chronic kidney disease; F14.10 Cocaine abuse, uncomplicated; F11.10 Opioid abuse, uncomplicated; F13.10 Sedative, hypnotic or anxiolytic abuse, uncomplicated; Z53.21 Procedure and treatment not carried out due to patient leaving prior to being seen by health care provider; K59.00 Constipation, unspecified; Z68.26 Body mass index [BMI] 26.0-26.9, adult; Z83.49 Family history of other endocrine, nutritional and metabolic diseases; Z83.79 Family history of other diseases of the digestive system; Z91.19 Patient's noncompliance with other medical treatment and regimen
CPT/HCPCS: 36415; 71045; 74018; 76705; 76770; 80048; 80053; 80305; 81001; 82150; 82247; 82570; 82607; 82728; 82746; 83036; 83540; 83605; 83690; 83735; 83880; 84100; 84134; 84443; 84450; 84484; 85025; 85045; 85610; 85730; 86803; 87040; 87081; 87086; 87186; 87340; 96361; 96365; 97116; 99285; C1751; G0482; J0696; J2270; J2543; J2765; J2916; J3480; J7030; J7042; J7060; Q0092